=== PATIENT | male | born 1980 | race Caucasian/White ===

== ENCOUNTER 2022-10-19 17:27 | Emergency (ER) | payer OTHER, SELFPAY ==
[2022-10-19 17:33] VITALS: BP 136/90; PULSE 107; RESP 18; TEMP 37.2; O2SAT 97; BMI 37.1
--- NOTE | 2022-10-19 18:12 | ED.UPPEXIN1 ---
HPI - Extremity Injury (Upper) General Chief Complaint: Extremity Injury, Upper Stated Complaint: ALMOST CUT TIP OFF [facility] Time Seen by Provider: 10/19/22 17:38 Source: patient Mode of arrival: walk-in Limitations: no limitations History of Present Illness HPI narrative: patient was using a knife to cut green peppers when he accidentally cut the tip of his left thumb. He also has a tiny superficial cut to the left middle finger. he does not take blood thinners. Related Data Allergies Allergy/AdvReac Type Severity Reaction Status Date / Time No Known Drug Allergies Allergy Verified 10/19/22 17:38 Exam Narrative Exam Narrative: Nurses notes and vital signs reviewed and patient is not hypoxic. General: Well-appearing and in no apparent distress. Skin: Warm, dry, no pallor noted. Cardiovascular: Normal peripheral perfusion. Respiratory: No accessory muscle use or respiratory distress. Musculoskeletal: Circular laceration of the tip of the left thumb which is 50% of the thumb tip. Bleeding is vigorous. I applied a tourniquet to the base of the left thumb and was able to staunch the bleeding and complete the exam. No foreign material found under the flap or on the distal thumb wound. Total laceration size is 1cm. There is also a 2mm superficial laceration to the palmar aspect of the distal phalanx of the left 3rd finger near the nail edge, bleeding is controlled. all fingers of the left hand with normal ROM Neurological: A&O x4. No cranial nerve dysfunction observed. No truncal ataxia. Moves all extremities. Sensation intact. Psychiatric: Cooperative and interactive. Normal mood and affect. Constitutional Vital Signs, click to edit/add: Last Vital Signs Temp 99 F 10/19/22 17:33 Pulse 107 H 10/19/22 17:33 Resp 18 10/19/22 17:33 BP 136/90 10/19/22 17:33 Pulse Ox 97 10/19/22 17:33 O2 Del Method Room Air 10/19/22 17:33 Course Vital Signs Vital signs: Vital Signs Temperature 99 F 10/19/22 17:33 Pulse Rate 107 H 10/19/22 17:33 Respiratory Rate 18 10/19/22 17:33 Blood Pressure 136/90 10/19/22 17:33 Pulse Oximetry 97 10/19/22 17:33 Oxygen Delivery Method Room Air 10/19/22 17:33 Temperature 99 F 10/19/22 17:33 Pulse Rate 107 H 10/19/22 17:33 Respiratory Rate 18 10/19/22 17:33 Blood Pressure 136/90 10/19/22 17:33 Pulse Oximetry 97 10/19/22 17:33 Oxygen Delivery Method Room Air 10/19/22 17:33 MDM - Extremity Injury (Upper) MDM Narrative Medical decision making narrative: the wound was cleansed, anesthetized and the laceration was closed with sterile sutures as detailed above. I then removed the tourniquet and bleeding remained controlled. The patient tolerated the procedure well. The tiny laceration to the left middle finger was not actively bleeding and I applied a Band-Aid to this area. The patient's tetanus was updated and the patient was discharged home with recommendation to have his suture removed in approximately 7-10 days. This is a Worker's Compensation case and therefore he'll follow-up with occupational health. Discharge Plan Discharge Chief Complaint: Extremity Injury, Upper Clinical Impression: Laceration of finger Patient Disposition: Home, Self-Care Time of Disposition Decision: 18:19 Instructions: Finger Laceration (ED) Stand Alone Forms: Portal Instructions Referrals: Occupational Therapy,Template, OT [Occupational Therapist] - 10/28/22 Procedures ED Laceration Laceration Laceration 1: Additional comments: Laceration repair: All of the procedure was done under sterile conditions. Wound cleansed with betadine and anesthetized with local injection of approximately 1.5mL of lidocaine 1% without epinephrine. The wound was irrigated copiously with sterile normal saline. The wound was explored to depth and found to be free of foreign material. The laceration wound edges were well-approximated and did not require revision. Wound closed with 4 sterile 4-0 ethilon sutures in simple interrupted fashion. Patient tolerated the procedure well. The patient was neurovascularly intact post-repair. Topical bacitracin applied to the laceration and it was dressed with a dry sterile dressing. The patient will need to follow-up in the next 7-10 days for removal.
[2022-10-19] MEDS: ADACEL DIPH,PERTUSS(ACELL),TET VAC/PF 0.5 ML ADULT SYRINGE IM (18:33)
== END 2022-10-19 18:43 | disposition home or self-care (01) ==
PROVIDERS: Emergency Provider Emergency Medicine
DX: S61.012A Laceration without foreign body of left thumb without damage to nail, initial encounter (principal); S61.213A Laceration without foreign body of left middle finger without damage to nail, initial encounter; W26.0XXA Contact with knife, initial encounter; Z23 Encounter for immunization
CPT/HCPCS: 12001; 90471; 90715; 99283